=== PATIENT | male | born 1955 | race Caucasian/White ===

== ENCOUNTER 2017-01-01 08:14 | Outpatient (CLI) | payer OTHER, MEDICARE ==
[2017-01-01 09:27] LABS: Anion Gap 20 mmol/L (10-20); BUN (Urea Nitrogen) 36 mg/dL (8.4-25.7); Calc. Creatinine Clearance 0 mL/min (70-130); Calcium 9.3 mg/dL (7.8-10.44); Carbon Dioxide 21 mmol/L (22-29); Chloride 93 mmol/L (98-107); Estimated GFR-MDRD 25; Glucose 136 mg/dL (70-105); Potassium 6.3 mmol/L (3.5-5.1); Sodium 128 mmol/L (136-145)
== END 2017-01-01 08:15 | disposition home or self-care (01) ==
LOC: BURLAB 08:14
PROVIDERS: ATTEND Internal Medicine Rheumatology
DX: M45.9 Ankylosing spondylitis of unspecified sites in spine (principal)
CPT/HCPCS: 36415; 80048

== ENCOUNTER 2017-01-18 10:36 | Outpatient (CLI) | payer OTHER, MEDICARE | END 2017-01-18 10:37 | disposition home or self-care (01) | LOC: BURLAB 10:36 | PROVIDERS: ATTEND Psychiatry & Neurology Neurology | DX: R26.9 Unspecified abnormalities of gait and mobility (principal) | CPT/HCPCS: 36415; 82085; 82550; 82607; 82746; 84165; 84443; 86334 ==